=== PATIENT | male | born 2000 | race Caucasian/White ===

== ENCOUNTER 2018-10-08 16:19 | Emergency (ER) | payer OTHER ==
[~2018-10-08] VITALS: Ht 182.9 cm; Wt 97.7 kg
[2018-10-08] MEDS ORDERED: IBUP-1114 PO (16:34)
[2018-10-08] MEDS ORDERED: OXYC-517 PO (16:34)
[2018-10-08] MEDS ORDERED: AUGM875T28 PO (16:34)
[2018-10-08] MEDS ORDERED: PERI12LIQ PO (16:34)
[2018-10-08 18:37] VITALS: BP 137/62
== END 2018-10-08 18:53 | disposition home or self-care (01) ==
LOC: M ED 16:19
DX: R68.84 Jaw pain (principal); S02.609D Fracture of mandible, unspecified, subsequent encounter for fracture with routine healing; X58.XXXD Exposure to other specified factors, subsequent encounter; Y92.89 Other specified places as the place of occurrence of the external cause

== ENCOUNTER 2018-12-05 03:20 | Emergency (ER) | payer OTHER ==
[~2018-12-05] VITALS: Ht 182.9 cm; Wt 94.1 kg
[~2018-12-05 03:20] MED LIST: AUGM875T28 PO; IBUP-1114 PO; OXYC-517 PO; PERI12LIQ PO
[2018-12-05 04:11] VITALS: BP 138/62
[2018-12-05] MEDS ORDERED: NAPROXEN 250 MG TAB PO ONE (05:00)
[2018-12-05] MEDS ORDERED: NAPR-885 PO (05:05)
--- NOTE | 2018-12-05 08:48 | REP ---
Right knee series: Four views. History: Pain. Popping sensation. Findings: By views of the right knee demonstrate a bone island in the medial femoral condyle. Bones joints soft tissues are otherwise unremarkable. No fracture or subluxation is seen. Impression: Negative right knee radiographs. Electronically Signed by Daquan Murcia MD 12/05/2018 08:40 A
== END 2018-12-05 05:24 | disposition home or self-care (01) ==
LOC: M ED 03:20
DX: M79.661 Pain in right lower leg (principal); X50.1XXA Overexertion from prolonged static or awkward postures, initial encounter; Y92.830 Public park as the place of occurrence of the external cause; Y93.9 Activity, unspecified; Y99.9 Unspecified external cause status